=== PATIENT | male | born 1965 | race Caucasian/White ===

== ENCOUNTER → 2017-11-20 | Day surgery (SDC) | payer OTHER ==
[~2017-11-20] MED LIST: LIDOCAINE 1%/EPI 1:100,000 30 ML VIAL. IJ
== END ==
LOC: SURG 10:59
DX: D17.0 Benign lipomatous neoplasm of skin and subcutaneous tissue of head, face and neck (principal)
CPT/HCPCS: 21012; 88304; J3490